=== PATIENT | female | born 1960 | race Caucasian/White ===

== ENCOUNTER 2020-04-28 17:11 | Inpatient (IN) | payer OTHER ==
[~2020-04-28] VITALS: Ht 165.1 cm; Wt 64.0 kg
[2020-04-28 20:31] LABS: HEMOGLOBIN 15.2 gm/dl (12.3-15.3); RED BLOOD COUNT 5.09 M/UL (4.00-5.10); WHITE BLOOD COUNT 7.1 K/UL (4.5-11.0)
[2020-04-28 20:59] LABS: BUN/CREATININE RATIO 22 (0-10)
[2020-04-29] MEDS ORDERED: SERTRALINE HCL100 MG PO (16:08)
[2020-04-29] MEDS ORDERED: WELLBUTRIN SR150 M1 PO (16:08)
[2020-04-29] MEDS ORDERED: QUETIAPINE FUM100 MG PO (16:09)
[2020-04-29] MEDS ORDERED: CLONAZEPAM1 MG PO (16:10)
[2020-04-29] MEDS ORDERED: HYDROCODON-ACE1 EAC6 PO (16:11)
[2020-04-29] MEDS ORDERED: GABAPENTIN800 MG PO (16:12)
[2020-04-29] MEDS ORDERED: WELLBUTRIN SR150 MG PO (16:16)
[2020-04-29] MEDS ORDERED: ADMELOG SO100 UNIT/1 SQ (16:20)
[2020-04-30 06:15] LABS: BUN/CREATININE RATIO 19 (0-10)
[2020-05-01 03:48] LABS: WHITE BLOOD COUNT 5.9 K/UL (4.5-11.0)
[2020-05-01 03:50] LABS: HEMOGLOBIN 12.9 gm/dl (12.3-15.3); RED BLOOD COUNT 4.41 M/UL (4.00-5.10)
[2020-05-01 04:10] LABS: BUN/CREATININE RATIO 21 (0-10)
--- NOTE | 2020-05-01 15:35 | NUR ---
reported to dr. dhillon patient b/p 181/83 and [facility] held d/t patient has been sleeping.
[2020-05-02 03:44] LABS: BUN/CREATININE RATIO 22 (0-10)
--- NOTE | 2020-05-02 12:02 | NUR ---
patient sleeping, will open eyes when spoken to. drowsiness noted.
--- NOTE | 2020-05-02 15:52 | NUR ---
NOTIFIED DR. DAVIS OF PATIENT HAVING CARDIAC CATH IN THE MORNING- ACKNOWLEDGED
[2020-05-03] MEDS ORDERED: ASPIRIN EC81 MG PO (12:12)
[2020-05-03] MEDS ORDERED: LOPRESSOR 25 MG25 MG PO (12:12)
[2020-05-03] MEDS ORDERED: LANTUS INS100 UTS/M1 SC (12:12)
[2020-05-03] MEDS ORDERED: LISINOPRIL10 MG PO (12:12)
[2020-05-03] MEDS ORDERED: QUETIAPINE FUMA25 MG PO (12:12)
[2020-05-03] MEDS ORDERED: HUMALOG 10100 UNITS/ SC (12:12)
--- NOTE | 2020-05-03 12:16 | NUR ---
SUSPICIOUS OF SELF MEDICATING DUE TO INCREASED FATIGUE NOTICED IN PT. PT A/O AND VITALS STABLE. PT DIFFICULT TO AROUSE. MULTIPLE MEDICATION BOTTLES LOCATED IN PT PURSE. THEY WERE CONTROLS. PURSE REMOVED FROM PT BED AND PLACED IN CLOSET IN ROOM. NOTIFIED. NO FURTHER ACTION AT THIS TIME. WCJERICHO.
[2020-05-03 13:48] LABS: BUN/CREATININE RATIO 20 (0-10)
--- NOTE | 2020-05-03 16:45 | NUR ---
REPORT CALLED TO [facility] AT 1600. SPOKE WITH MICHAEL CHACON. EMS NOTIFIED OF NEED FOR TRANSPORT. DISCUSSED WITH PT. PT STATED SHE UNDERTSOOD AND WAS OK WITH THE PLAN OF CARE AND TRANSFER TO [facility].
== END 2020-05-03 19:23 | disposition short-term general hospital (02) | DRG 286 ==
LOC: ER1 17:11 → M/S 04-29 03:14 → ZEROF 04-29 03:14 → M/S 04-29 11:37
PROVIDERS: Family Medicine; Internal Medicine; Internal Medicine Interventional Cardiology; Physician Assistant; ADMIT Internal Medicine
PROC: 4A023N7 Measurement of Cardiac Sampling and Pressure, Left Heart, Percutaneous Approach (ICD-10-PCS; principal; 2020-05-03)
PROC: B215YZZ Fluoroscopy of Left Heart using Other Contrast (ICD-10-PCS; 2020-05-03)
PROC: B211YZZ Fluoroscopy of Multiple Coronary Arteries using Other Contrast (ICD-10-PCS; 2020-05-03)
DX: I25.10 Atherosclerotic heart disease of native coronary artery without angina pectoris (principal); I50.33 Acute on chronic diastolic (congestive) heart failure; J96.01 Acute respiratory failure with hypoxia; E87.2 Acidosis; R18.8 Other ascites; J90 Pleural effusion, not elsewhere classified; I11.0 Hypertensive heart disease with heart failure; M54.9 Dorsalgia, unspecified; Z20.822 Contact with and (suspected) exposure to COVID-19; G89.29 Other chronic pain; E83.52 Hypercalcemia; M51.36 Other intervertebral disc degeneration, lumbar region; I07.1 Rheumatic tricuspid insufficiency; I27.20 Pulmonary hypertension, unspecified; F41.9 Anxiety disorder, unspecified; E11.9 Type 2 diabetes mellitus without complications; E87.6 Hypokalemia; Z79.899 Other long term (current) drug therapy; Z79.891 Long term (current) use of opiate analgesic; Z79.4 Long term (current) use of insulin; Z83.3 Family history of diabetes mellitus; Z88.2 Allergy status to sulfonamides; Z28.21 Immunization not carried out because of patient refusal
CPT/HCPCS: ECHO; 36415; 36600; 71045; 78452; 80048; 80053; 81001; 82550; 82553; 82803; 82962; 83036; 83874; 83880; 83970; 84439; 84443; 84484; 85025; 85379; 93017; 93306; 93970; 96372; 96374; 99285; A9502; C1769; J0360; J0696; J1644; J1650; J1940; J2785; J7030; Q9965; Q9967; U0002

== ENCOUNTER 2020-05-14 17:13 | Inpatient (IN) | payer OTHER ==
[~2020-05-14] VITALS: Ht 165.1 cm; Wt 63.5 kg
[~2020-05-14 17:13] MED LIST: ADMELOG SO100 UNIT/1 SQ; ASPIRIN EC81 MG PO; CLONAZEPAM1 MG PO; GABAPENTIN800 MG PO; HUMALOG 10100 UNITS/ SC; HYDROCODON-ACE1 EAC6 PO; LANTUS INS100 UTS/M1 SC; LISINOPRIL10 MG PO; LOPRESSOR 25 MG25 MG PO; QUETIAPINE FUM100 MG PO; QUETIAPINE FUMA25 MG PO; SERTRALINE HCL100 MG PO; WELLBUTRIN SR150 M1 PO; WELLBUTRIN SR150 MG PO
[2020-05-14 17:42] LABS: HEMOGLOBIN 13.1 gm/dl (12.3-15.3); RED BLOOD COUNT 4.53 M/UL (4.00-5.10); WHITE BLOOD COUNT 10.4 K/UL (4.5-11.0)
[2020-05-14 18:03] LABS: BUN/CREATININE RATIO 28 (0-10)
[2020-05-14] MEDS ORDERED: ATORVASTATIN CA80 MG PO (18:29)
[2020-05-14] MEDS ORDERED: VITAMIN D21250 MCG PO (18:55)
[2020-05-14] MEDS ORDERED: CARAFATE1 GM PO (18:56)
[2020-05-14] MEDS ORDERED: CATAPRES 0.1MG0.1 MG PO (18:57)
[2020-05-14] MEDS ORDERED: FISH OIL 1,0001 EACH PO (18:57)
[2020-05-14] MEDS ORDERED: LASIX20 MG PO (18:58)
--- NOTE | 2020-05-15 09:20 | NUR ---
ALL AM MEDS JEWEL WAXER PER PACU NURSE
[2020-05-16 06:02] LABS: HEMOGLOBIN 10.5 gm/dl (12.3-15.3); RED BLOOD COUNT 3.68 M/UL (4.00-5.10); WHITE BLOOD COUNT 12.8 K/UL (4.5-11.0)
[2020-05-16 06:34] LABS: BUN/CREATININE RATIO 38 (0-10)
[2020-05-17] MEDS ORDERED: LANTUS INS100 UTS/M1 SC (09:47)
[2020-05-17] MEDS ORDERED: POTASSIUM CHLO20 ME2 PO (09:47)
[2020-05-17] MEDS ORDERED: LOPRESSOR 25 MG25 MG PO (09:47)
[2020-05-17] MEDS ORDERED: ENOXAPARIN40 MG/0.4 SC (09:47)
[2020-05-17] MEDS ORDERED: GABAPENTIN300 MG PO (09:47)
[2020-05-17] MEDS ORDERED: ASPIRIN EC81 MG PO (09:47)
== END 2020-05-18 13:27 | disposition home health service (06) | DRG 493 ==
LOC: ER1 17:13 → CDU 20:29 → M/S 21:38 → CDU 21:38 → M/S 05-15 09:06
PROVIDERS: Internal Medicine Infectious Disease; Orthopaedic Surgery; Physician Assistant; ADMIT Internal Medicine
PROC: 0QSJXZZ Reposition Right Fibula, External Approach (ICD-10-PCS; 2020-05-14)
PROC: 0QSGXZZ Reposition Right Tibia, External Approach (ICD-10-PCS; 2020-05-14)
PROC: 2W3LX1Z Immobilization of Right Lower Extremity using Splint (ICD-10-PCS; 2020-05-14)
PROC: 0QSG35Z Reposition Right Tibia with External Fixation Device, Percutaneous Approach (ICD-10-PCS; 2020-05-15)
PROC: 0QSJ35Z Reposition Right Fibula with External Fixation Device, Percutaneous Approach (ICD-10-PCS; principal; 2020-05-15 01:30)
DX: S82.851A Displaced trimalleolar fracture of right lower leg, initial encounter for closed fracture (principal); I50.32 Chronic diastolic (congestive) heart failure; F11.20 Opioid dependence, uncomplicated; J96.11 Chronic respiratory failure with hypoxia; J90 Pleural effusion, not elsewhere classified; I11.0 Hypertensive heart disease with heart failure; W01.0XXA Fall on same level from slipping, tripping and stumbling without subsequent striking against object, initial encounter; M54.5 Low back pain; E11.40 Type 2 diabetes mellitus with diabetic neuropathy, unspecified; E11.51 Type 2 diabetes mellitus with diabetic peripheral angiopathy without gangrene; G89.29 Other chronic pain; E87.6 Hypokalemia; I25.10 Atherosclerotic heart disease of native coronary artery without angina pectoris; F41.9 Anxiety disorder, unspecified; Z88.2 Allergy status to sulfonamides; Z98.51 Tubal ligation status; Y92.002 Bathroom of unspecified non-institutional (private) residence as the place of occurrence of the external cause; Z83.3 Family history of diabetes mellitus; Y93.89 Activity, other specified; Z79.4 Long term (current) use of insulin; Z79.899 Other long term (current) drug therapy
CPT/HCPCS: 29515; 36415; 36600; 71045; 73590; 73610; 73630; 76000; 80053; 80307; 81001; 82550; 82553; 82803; 82962; 83874; 84484; 85025; 85610; 85730; 87635; 90471; 90715; 93005; 94640; 94664; 94760; 96365; 96366; 96372; 96375; 97110-GP-CQ; 97161; 97166; 97530-GP-CQ; 97535; 99285; C1713; G0378; J0171; J0690; J1100; J1650; J1940; J2270; J2405; J2704; J2795; J3010